=== PATIENT | male | born 1985 | race African-American/Black ===

== ENCOUNTER 2020-11-13 01:33 | Emergency (ER) | payer MEDICAID ==
--- NOTE | 2020-11-13 01:57 | EDM.PDOC ---
ED HPI GENERAL MEDICAL PROBLEM - General Chief Complaint: Drug or Alcohol Abuse Stated Complaint: MEDICAL CLEARANCE Time Seen by Provider: 11/13/20 01:47 - History of Present Illness INITIAL COMMENTS - FREE TEXT/NARRATIVE: 35-year-old male presents the emergency room brought in in custody for clearance to go to care home. Patient states he took a couple oral fentanyl at approximately midnight. He denies any pain or discomfort at this time and is very sleepy but he wakes up and answers questions appropriately. Apparently ambulance when out as they were booking him into care home he thought he was having some chest pain but this did resolve. And again he is symptom-free at this time except he is sleepy he does awaken quickly and answers questions appropriately he denies past medical problems. - Related Data Allergies Allergy/AdvReac Type Severity Reaction Status Date / Time No Known Allergies Allergy Verified 11/13/20 01:46 Past Medical History - Past Health History Medical/Surgical History: Denies Medical/Surgical History Social & Family History - Recreational Drug Use Recreational Drug Use: Yes Drug Use in Last 12 Months: Yes Recreational Drug Type: Reports: Fentanyl ED ROS GENERAL - Review of Systems Review Of Systems: See Below Constitutional: Reports: No Symptoms HEENT: Reports: No Symptoms Respiratory: Reports: No Symptoms Cardiovascular: Reports: No Symptoms Endocrine: Reports: No Symptoms GI/Abdominal: Reports: No Symptoms ED EXAM, GENERAL - Physical Exam Exam: See Below Exam Limited By: No Limitations General Appearance: Alert, No Apparent Distress Ears: Normal External Exam, Normal Canal, Hearing Grossly Normal, Normal TMs Nose: Normal Inspection, Normal Mucosa, No Blood Throat/Mouth: Normal Inspection, Normal Lips, Normal Teeth, Normal Gums, Normal Oropharynx, Normal Voice, No Airway Compromise Head: Atraumatic, Normocephalic Neck: Normal Inspection, Supple, Non-Tender, Full Range of Motion Respiratory/Chest: No Respiratory Distress, Lungs Clear, Normal Breath Sounds, No Accessory Muscle Use, Chest Non-Tender Cardiovascular: Normal Peripheral Pulses, Regular Rate, Rhythm, No Edema, No Gallop, No JVD, No Murmur, No Rub (Male) Exam: No Hernia, Normal Inspection, Normal Prostate, Circumcised Back Exam: Normal Inspection, Full Range of Motion, NT Neurological: Alert, Oriented Course - Vital Signs Last Recorded V/S: Last Vital Signs Temp 35.6 C L 11/13/20 01:40 Pulse 65 11/13/20 01:40 Resp 16 11/13/20 01:40 BP 131/88 11/13/20 01:40 Pulse Ox 99 11/13/20 01:40 - Orders/Labs/Meds Orders: Active Orders 24 hr Category Date Time Status CBC WITH AUTO DIFF [HEME] Stat Lab 11/13/20 02:09 Ordered COMPREHENSIVE METABOLIC PN,CMP [CHEM] Stat Lab 11/13/20 02:09 Ordered DRUG SCREEN, URINE [URCHEM] Stat Lab 11/13/20 02:09 Ordered ETOH [ETHANOL BLOOD MEDICAL] [CHEM] Stat Lab 11/13/20 02:09 Ordered UA RFX SARA AND CULT IF INDIC [URIN] Stat Lab 11/13/20 02:09 Ordered - Re-Assessments/Exams Free Text/Narrative Re-Assessment/Exam: 11/13/20 02:37 Patient initially consented to me that it was okay for him to give us a urine specimen and some lab work and then he refused all this at this point his O2 saturation when he is sleeping is 97% he is easily arousable we are not doing anything for him here we will discharge him back to the care home. Departure - Departure Time of Disposition: 02:38 Disposition: Home, Self-Care 01 Clinical Impression: Medical clearance for incarceration - Discharge Information Referrals: PCP,None [Primary Care Provider] - Forms: ED Department Discharge Additional Instructions: Return to the emergency room with any questions problems or worsening symptoms Sepsis Event Note (ED) - Evaluation Sepsis Screening Result: No Definite Risk - Focused Exam Vital Signs: Vital Signs Temp Pulse Resp BP Pulse Ox 11/13/20 01:40 35.6 C L 65 16 131/88 99 - My Orders Last 24 Hours: My Active Orders 11/13/20 02:09 CBC WITH AUTO DIFF [HEME] Stat COMPREHENSIVE METABOLIC PN,CMP [CHEM] Stat DRUG SCREEN, URINE [URCHEM] Stat ETOH [ETHANOL BLOOD MEDICAL] [CHEM] Stat UA RFX SARA AND CULT IF INDIC [URIN] Stat - Assessment/Plan Last 24 Hours: My Active Orders 11/13/20 02:09 CBC WITH AUTO DIFF [HEME] Stat COMPREHENSIVE METABOLIC PN,CMP [CHEM] Stat DRUG SCREEN, URINE [URCHEM] Stat ETOH [ETHANOL BLOOD MEDICAL] [CHEM] Stat UA RFX SARA AND CULT IF INDIC [URIN] Stat
== END 2020-11-13 02:42 ==
LOC: JD.ED 01:33
DX: Z02.89 Encounter for other administrative examinations (principal)
CPT/HCPCS: 99283